=== PATIENT | female | born 1950 | race African-American/Black ===

== ENCOUNTER 2017-03-03 16:26 | Emergency (ER) | payer SELFPAY ==
--- NOTE | 2017-03-03 17:37 | ER Document Report ---
ED Medical Screen (RME) - General Chief Complaint: Abdominal Pain Stated Complaint: ABDOMINAL PAIN Time Seen by Provider: 03/03/17 17:29 Notes: Patient is a 66 year old female who was referred from [facility] with abdominal pain, bloating and constipation. she was seen on 02/16/2017 for diarrhea and abdominal pain for 3-4 days, she was cipro for concerns for diverticulitis. Negative stool culture. c/ diff not run due to insufficient sample. last po 720am Tolerating PO, denies N/v. denies flatus but admits to burping more then her normal denies fevers, chills PMH: diverticulitis, DM, HTN PSH: appy, tubal ligation, paulino SH: smoker, denies etoh IVDU TRAVEL OUTSIDE OF THE [place] IN LAST 30 DAYS: No - Related Data Allergies/Adverse Reactions: No Known Allergies Allergy (Unverified 03/03/17 16:32) Past Medical History - Social History Chew tobacco use (# tins/day): No Frequency of alcohol use: None Drug Abuse: None - Past Medical History Cardiac Medical History: Reports: Hx Hypertension Endocrine Medical History: Reports: Hx Diabetes Mellitus Type 2 Renal/ Medical History: Denies: Hx Peritoneal Dialysis Past Surgical History: Reports: Hx Appendectomy, Hx Tubal Ligation - Immunizations Hx Diphtheria, Pertussis, Tetanus Vaccination: Yes - 2013 Physical Exam - Vital signs Vitals: Temp Pulse Resp BP Pulse Ox 98.9 F 87 18 114/48 L 94 03/03/17 16:30 03/03/17 16:30 03/03/17 16:30 03/03/17 16:30 03/03/17 16:30 - General General appearance: Appears well, Alert In distress: None - Respiratory Respiratory status: No respiratory distress Chest status: Nontender Breath sounds: Normal Chest palpation: Normal - Cardiovascular Rhythm: Regular Heart sounds: Normal auscultation, S1 appreciated, S2 appreciated Murmur: No Pulses: Normal: Radial - Abdominal Inspection: Obese Distension: Distended Bowel sounds: Hypoactive Tenderness: Tender - diffuse Course - Vital Signs Vital signs: Temp Pulse Resp BP Pulse Ox 98.9 F 87 18 114/48 L 94 03/03/17 16:30 03/03/17 16:30 03/03/17 16:30 03/03/17 16:30 03/03/17 16:30
[2017-03-03 18:34] LABS: ABSOLUTE BASOPHILS # (AUTO) 0.1 10^3/uL (0.0-0.2); ABSOLUTE EOSINOPHILS # (AUTO) 0.1 10^3/uL (0.0-0.6); ABSOLUTE MONOCYTES (AUTO) 0.9 10^3/uL (0.1-1.4); ABSOLUTE NEUT (AUTO) 8.9 10^3/uL (1.7-8.2); BASOPHILS % (AUTO) 0.6 % (0-2); EOSINOPHILS % (AUTO) 0.7 % (0-6); HEMATOCRIT 37.6 % (36.0-47.0); HEMOGLOBIN 12.6 g/dL (12.0-15.5); HGB HCT DIFFERENCE 0.2; MEAN CORPUSCULAR HEMOGLOBIN 31.1 pg (27.0-33.4); MEAN CORPUSCULAR HGB CONC 33.6 g/dL (32.0-36.0); MEAN CORPUSCULAR VOLUME 93 fl (80-97); MONOCYTES % (AUTO) 7.3 % (3-13); RED BLOOD COUNT 4.07 10^6/uL (3.72-5.28); RED CELL DISTRIBUTION WIDTH 13.3 % (11.5-14.0); SEGMENTED NEUTROPHILS % (AUTO) 68.4 % (42-78)
[2017-03-03 18:55] LABS: ALANINE AMINOTRANSFERASE 23 U/L (9-52); ALBUMIN 3.8 g/dL (3.5-5.0); ALKALINE PHOSPHATASE 112 U/L (38-126); ANION GAP 11 (5-19); ASPARTATE AMINO TRANSFERASE 25 U/L (14-36); BILIRUBIN,DIRECT 0.7 mg/dL (0.0-0.4); BILIRUBIN,TOTAL 1.4 mg/dL (0.2-1.3); BLOOD UREA NITROGEN 27 mg/dL (7-20); CALCIUM 9.6 mg/dL (8.4-10.2); CARBON DIOXIDE 26 mmol/L (22-30); CHLORIDE 106 mmol/L (98-107); CREATININE RESULT 1.03 mg/dL (0.52-1.25); GLUCOSE 148 mg/dL (75-110); LIPASE 11.4 U/L (23-300); POTASSIUM 5.1 mmol/L (3.6-5.0); SODIUM 142.9 mmol/L (137-145); TOTAL PROTEIN 7.6 g/dL (6.3-8.2)
--- NOTE | 2017-03-03 20:50 | RADIOLOGY REPORT (SQ) ---
EXAM DESCRIPTION: CT ABD/PELVIS WITH IV ONLY COMPLETED DATE/TIME: 03/03/2017 8:16 pm REASON FOR STUDY: abdominal pain, constipation h/o diverticulitis COMPARISON: None. TECHNIQUE: CT scan of the abdomen and pelvis performed using helical scanning technique with dynamic intravenous contrast injection. No oral contrast. Images reviewed with lung, soft tissue, and bone windows. Reconstructed coronal and sagittal MPR images reviewed. Delayed images for evaluation of the urinary system also acquired. All images stored on PACS. All CT scanners at this facility use dose modulation, iterative reconstruction, and/or weight based d osing when appropriate to reduce radiation dose to as low as reasonably achievable (ALARA). [facility]: Dose Right [facility]: CareDose [facility]: Dose Right [facility]: Teradose 4D [facility]: Unda CONTRAST TYPE AND DOSE: contrast/concentration: Isovue 370.00 mg/ml; Total Contrast Delivered: 100.0 ml; Total Saline Delivered: 45.0 ml RENAL FUNCTION: Creatinine 1.03 RADIATION DOSE: Up-to-date CT equipment and radiation dose reduction techniques were employed. CTDIv ol: 28.0 - 29.5 mGy. DLP: 3513 mGy-cm.. LIMITATIONS: None. FINDINGS: LOWER CHEST: No significant findings. No nodules or infiltrates. LIVER: Normal size. No masses. No dilated ducts. SPLEEN: Normal size. No focal lesions. PANCREAS: No masses. No significant calcifications. No adjacent inflammation or peripancreatic fluid collections. Pancreatic duct not dilated. GALLBLADDER: Status post cholecystectomy ADRENAL GLANDS: No significant masses or asymmetry. RIGHT KIDNEY AND URETER: No solid masses. No significant calcifications. No hydronephrosis or hyd roureter. LEFT KIDNEY AND URETER: No solid masses. No significant calcifications. No hydronephrosis or hydr oureter. AORTA AND VESSELS: No aneurysm. No dissection. There is ectasia of the abdominal aorta and iliac ves sels with vascular calcifications and a component of intraluminal clot. Renal arteries, SMA, celiac without stenosis. RETROPERITONEUM: No retroperitoneal adenopathy, hemorrhage or masses. BOWEL AND PERITONEAL CAVITY: No masses or inflammatory changes. A moderate amount of intra-abdominal and pelvic ascitic fluid is identified with perihepatic and perisplenic components. APPENDIX: Status post appendectomy PELVIS: No mass. Pelvic ascitic fluid is identified. Normal bladder. ABDOMINAL WALL: No masses. No hernias. BONES: No significant or acute findings. OTHER: No other significant finding. IMPRESSION: Intra-abdominal and pelvic ascitic fluid as noted above. Other findings as noted above TECHNICAL DOCUMENTATION: JOB ID: [id number] Quality ID # [id number]: Final reports with documentation of one or more dose reduction techniques (e.g., Au tomated exposure control, adjustment of the mA and/or kV according to patient size, use of iterative reconstruction technique) 2010 [employer]- All Rights Reserved
[2017-03-03] MEDS ORDERED: LACTULOSE SYRUP 20 GM/30 ML UDCUP PO ONE (21:26)
--- NOTE | 2017-03-03 21:30 | ER Document Report ---
ED General - General Chief Complaint: Abdominal Pain Stated Complaint: ABDOMINAL PAIN Time Seen by Provider: 03/03/17 17:29 Notes: Patient is a 69-year-old female with past medical history of hypertension, hyperlipidemia, morbid obesity, prior appendectomy, cholecystectomy, who presents with 1 week of abdominal distention, generalized abdominal cramping and inability to have a bowel movement. Patient states she was having persistent diarrhea last week so she began taking loperamide. She states that since that time she has been unable to have a bowel movement and has since discontinued that medication. She has begun try MiraLAX at home without any success and having a bowel movement or having resolution of her abdominal pain. She was seen by her primary care doctor due to her ongoing abdominal pain was referred to the emergency department for CT scan of her abdomen and pelvis to evaluate for alternative pathologies. She does describe her abdominal pain as being a generalized abdominal bloating and cramping, feeling like she needs to have a bowel movement or pass gas. Does note that she is continued to pass small amounts of flatus at home but "not enough to actually get relief". She denies any history of similar symptoms in the past. She has no prior history of an ileus or a bowel obstruction. She has not had any melena or hematochezia. She has not had any vomiting. No chest pain or shortness of breath. TRAVEL OUTSIDE OF THE [place] IN LAST 30 DAYS: No - Related Data Allergies/Adverse Reactions: No Known Allergies Allergy (Unverified 03/03/17 16:32) Past Medical History - General Information source: Patient - Social History Smoking Status: Current Every Day Smoker Chew tobacco use (# tins/day): No Frequency of alcohol use: None Drug Abuse: None Lives with: Spouse/Significant other Family History: Reviewed & Not Pertinent - Past Medical History Cardiac Medical History: Reports: Hx Hypertension Endocrine Medical History: Reports: Hx Diabetes Mellitus Type 2 Renal/ Medical History: Denies: Hx Peritoneal Dialysis Past Surgical History: Reports: Hx Appendectomy, Hx Cholecystectomy, Hx Tubal Ligation - Immunizations Hx Diphtheria, Pertussis, Tetanus Vaccination: Yes - 2013 Review of Systems - Review of Systems Notes: Constitutional: Negative for fever. HENT: Negative for sore throat. Eyes: Negative for visual changes. Cardiovascular: Negative for chest pain. Respiratory: Negative for shortness of breath. Gastrointestinal: Positive for abdominal pain Genitourinary: Negative for dysuria. Musculoskeletal: Negative for back pain. Skin: Negative for rash. Neurological: Negative for headaches, weakness or numbness. 10 point ROS negative except as marked above and in HPI. Physical Exam - Vital signs Vitals: Temp Pulse Resp BP Pulse Ox 98.9 F 87 18 114/48 L 94 03/03/17 16:30 03/03/17 16:30 03/03/17 16:30 03/03/17 16:30 03/03/17 16:30 Interpretation: Normal Notes: PHYSICAL EXAMINATION: GENERAL: Well-appearing, well-nourished and in no acute distress. HEAD: Atraumatic, normocephalic. EYES: Pupils equal round and reactive to light, extraocular movements intact, sclera anicteric, conjunctiva are normal. ENT: nares patent, oropharynx clear without exudates. Moderately dry mucous membranes. NECK: Normal range of motion, supple without lymphadenopathy LUNGS: Breath sounds clear to auscultation bilaterally and equal. No wheezes rales or rhonchi. HEART: Regular rate and rhythm without murmurs ABDOMEN: Soft, mildly distended. No focal areas of tenderness, rebound or guarding. Bowel sounds are present. EXTREMITIES: Normal range of motion, no pitting or edema. No cyanosis. NEUROLOGICAL: No focal neurological deficits. Moves all extremities spontaneously and on command. PSYCH: Normal mood, normal affect. SKIN: Warm, Dry, normal turgor, no rashes or lesions noted. Course - Re-evaluation Re-evalutation: 03/03/17 21:24 Patient presents with generalized abdominal pain and inability to have a bowel movement for the past 1 week. This started after she took loperamide repeatedly for a diarrheal episode last week which is now resolved. Patient was referred from her primary care doctor. On examination patient has mild distention of the abdomen but no focal areas of tenderness. Laboratories are unremarkable. CT abdomen and pelvis does not demonstrate any acute findings other than trace ascites, not a volume with which I could obtain a sample to evaluate for peritonitis and I do not suspect that is the etiology of patient's presentation. I much more suspect the patient, having been unable to successfully have a bowel movement and have minimal flatus for the past 1 week is having significant abdominal distention and discomfort secondary to that etiology. She herself agrees with this stating that it feels that she just needs to have a good bowel movement and her pain would go away. I have instructed her to discontinue loperamide, begin MiraLAX, and follow-up with her primary care doctor. At this time I do not suspect an acute aortic dissection, mesenteric ischemia, small bowel obstruction or ileus. At this time will discharge with return precautions and follow-up recommendations. Verbal discharge instructions given a the bedside and opportunity for questions given. Medication warnings reviewed. Patient is in agreement with this plan and has verbalized understanding of return precautions and the need for primary care follow-up in the next 24-72 hours. - Vital Signs Vital signs: Temp Pulse Resp BP Pulse Ox 97.9 F 84 17 121/59 L 95 03/03/17 22:09 03/03/17 22:09 03/03/17 22:09 03/03/17 22:09 03/03/17 22:09 - Laboratory Result Diagrams: 03/03/17 18:12 03/03/17 18:12 Laboratory results interpreted by me: 03/03/17 03/03/17 18:12 18:12 WBC 13.0 H Absolute Neutrophils 8.9 H Potassium 5.1 H BUN 27 H Est GFR (Non-Af Amer) 54 L Glucose 148 H Total Bilirubin 1.4 H Direct Bilirubin 0.7 H Lipase 11.4 L - Diagnostic Test Radiology reviewed: Reports reviewed Discharge - Discharge Clinical Impression: Generalized abdominal pain Condition: Good Disposition: HOME, SELF-CARE Additional Instructions: You have been seen in the Emergency Department (ED) for abdominal pain. Your evaluation did not identify a clear cause of your symptoms but was generally reassuring. Begin taking MiraLAX 2 capfuls daily and increase if you continue to have symptoms. Please follow up with your doctor as soon as possible regarding today's emergent visit and the symptoms that are bothering you. Return to the ED if your abdominal pain worsens or fails to improve, you develop bloody vomiting, bloody diarrhea, you are unable to tolerate fluids due to vomiting, fever greater than 101, or other symptoms that concern you. Referrals: BETHANY MCCULLOUGH MD [Primary Care Provider] - Follow up as needed
[2017-03-03 22:11] VITALS: BP 121/59
== END 2017-03-03 22:09 | disposition home or self-care (01) ==
LOC: ER 16:26
DX: R10.84 Generalized abdominal pain (principal); I10 Essential (primary) hypertension; E78.5 Hyperlipidemia, unspecified; E66.01 Morbid (severe) obesity due to excess calories; Z98.890 Other specified postprocedural states; R19.7 Diarrhea, unspecified; F17.200 Nicotine dependence, unspecified, uncomplicated
CPT/HCPCS: 36415; 74177; 80053; 83690; 85025; 99284

== ENCOUNTER 2017-03-09 11:31 | Emergency (ER) | payer SELFPAY ==
[2017-03-09] MEDS ORDERED: NORMAL SALINE 1000 ML 500 ML IV PRN (12:11)
--- NOTE | 2017-03-09 12:12 | ER Document Report ---
ED Medical Screen (RME) - General Chief Complaint: Abdominal Pain Stated Complaint: ABDOMINAL PAIN Time Seen by Provider: 03/09/17 11:45 Mode of Arrival: Ambulatory Information source: Patient TRAVEL OUTSIDE OF THE [place] IN LAST 30 DAYS: No - HPI Patient complains to provider of: Abdominal pain, bloating, no bowel movement 2 weeks Notes: 03/09/17 12:11 Patient is a 66-year-old female presenting to the emergency room today complaining of abdominal pain with bloating, she initially had some diarrhea, took loperamide for this, then developed constipation, she has not had a bowel movement for 2 weeks, she was seen in this emergency department on 03/03/2017, had a full evaluation at that point in time, and was advised to take MiraLAX twice a day, she has been doing this but still has not had a sizable bowel movement, continues to have increased bloating and now has discomfort when eating - Related Data Allergies/Adverse Reactions: No Known Allergies Allergy (Verified 03/09/17 11:37) Past Medical History - Past Medical History Cardiac Medical History: Reports: Hx Hypertension Endocrine Medical History: Reports: Hx Diabetes Mellitus Type 2 Renal/ Medical History: Denies: Hx Peritoneal Dialysis Past Surgical History: Reports: Hx Appendectomy, Hx Cholecystectomy, Hx Tubal Ligation - Immunizations Hx Diphtheria, Pertussis, Tetanus Vaccination: Yes - 2013 Physical Exam - Vital signs Vitals: Temp Pulse Resp BP Pulse Ox 98.1 F 105 H 18 125/61 96 03/09/17 11:37 03/09/17 11:37 03/09/17 11:37 03/09/17 11:37 03/09/17 11:37 Course - Vital Signs Vital signs: Temp Pulse Resp BP Pulse Ox 98.1 F 105 H 18 125/61 96 03/09/17 11:37 03/09/17 11:37 03/09/17 11:37 03/09/17 11:37 03/09/17 11:37
[2017-03-09 12:34] LABS: ABSOLUTE BASOPHILS # (AUTO) 0.1 10^3/uL (0.0-0.2); ABSOLUTE EOSINOPHILS # (AUTO) 0.1 10^3/uL (0.0-0.6); ABSOLUTE LYMPHOCYTES (AUTO) 2.6 10^3/uL (0.5-4.7); ABSOLUTE MONOCYTES (AUTO) 0.8 10^3/uL (0.1-1.4); BASOPHILS % (AUTO) 0.8 % (0-2); EOSINOPHILS % (AUTO) 0.9 % (0-6); HEMATOCRIT 34.3 % (36.0-47.0); HEMOGLOBIN 11.7 g/dL (12.0-15.5); HGB HCT DIFFERENCE 0.8; LYMPHOCYTES % (AUTO) 19.4 % (13-45); MEAN CORPUSCULAR HEMOGLOBIN 31.5 pg (27.0-33.4); MEAN CORPUSCULAR VOLUME 93 fl (80-97); MONOCYTES % (AUTO) 5.7 % (3-13); RED CELL DISTRIBUTION WIDTH 13.6 % (11.5-14.0); SEGMENTED NEUTROPHILS % (AUTO) 73.2 % (42-78); WHITE BLOOD COUNT 13.6 10^3/uL (4.0-10.5)
[2017-03-09 13:02] LABS: ALANINE AMINOTRANSFERASE 14 U/L (9-52); ALBUMIN 3.9 g/dL (3.5-5.0); ALKALINE PHOSPHATASE 120 U/L (38-126); ANION GAP 9 (5-19); ASPARTATE AMINO TRANSFERASE 23 U/L (14-36); BILIRUBIN,DIRECT 0.6 mg/dL (0.0-0.4); BILIRUBIN,TOTAL 1.5 mg/dL (0.2-1.3); BLOOD UREA NITROGEN 20 mg/dL (7-20); CALCIUM 9.4 mg/dL (8.4-10.2); CARBON DIOXIDE 26 mmol/L (22-30); CHLORIDE 107 mmol/L (98-107); CREATININE RESULT 0.89 mg/dL (0.52-1.25); GLUCOSE 146 mg/dL (75-110); POTASSIUM 4.1 mmol/L (3.6-5.0); SODIUM 142.1 mmol/L (137-145); TOTAL PROTEIN 8.2 g/dL (6.3-8.2)
[2017-03-09 13:07] LABS: LIPASE < 10.0 U/L (23-300)
--- NOTE | 2017-03-09 14:45 | ER Document Report ---
ED General - General Chief Complaint: Abdominal Pain Stated Complaint: ABDOMINAL PAIN Time Seen by Provider: 03/09/17 11:45 Mode of Arrival: Ambulatory Notes: 66-year-old female with a history of cholecystectomy presents with about a week of abdominal pain and bloating associated with daily watery bowel movements, constant, worsening today. Pain is located mostly in the left lower quadrant is "warm to the touch." She states "I have had a decent bowel movement in over a week. She has not had a hard bowel movements or bright red blood per rectum. No nausea vomiting but decreased oral intake both liquids and solids. Denies vaginal bleeding or gynecologic issues. Does states she has had decreased urine output. Has not been able to give a urine sample. TRAVEL OUTSIDE OF THE [place] IN LAST 30 DAYS: No - Related Data Allergies/Adverse Reactions: No Known Allergies Allergy (Verified 03/09/17 11:37) Past Medical History - General Information source: Patient - Social History Smoking Status: Current Every Day Smoker Chew tobacco use (# tins/day): No Frequency of alcohol use: None Drug Abuse: None Family History: Reviewed & Not Pertinent - Past Medical History Cardiac Medical History: Reports: Hx Hypertension Other: Fibroids gallstones Endocrine Medical History: Reports: Hx Diabetes Mellitus Type 2 Renal/ Medical History: Denies: Hx Peritoneal Dialysis Past Surgical History: Reports: Hx Appendectomy, Hx Cholecystectomy, Hx Tubal Ligation - Immunizations Hx Diphtheria, Pertussis, Tetanus Vaccination: Yes - 2013 Review of Systems - Review of Systems Notes: REVIEW OF SYSTEMS GEN: Denies fever, chills, weight loss ENT: Denies sore throat, nasal discharge, ear pain EYES: Denies blurry vision, eye pain, discharge CV: Denies chest pain, palpitations, edema RESP: Denies cough, shortness of breath, wheezing GI: Femoral pain distention diarrhea MSK: Denies joint pain/swelling, edema, SKIN: Denies rash, skin lesions LYMPH: Denies swollen glands/lymph nodes NEURO: Denies headache, focal weakness or numbness, dizziness PSYCH: Denies depression, suicidal or homicidal ideation PHYSICAL EXAMINATION General: No acute distress, well-nourished Head: Atraumatic, normocephalic ENT: Mouth normal, oropharynx moist, no exudates or tonsillar enlargement Eyes: Conjunctiva normal, pupils equal, lids normal Neck: No JVD, supple, no guarding CVS: Normal rate, regular rhythm, no murmurs Resp: No resp distress, equal and normal breath sounds bilaterally GI: Mild distention versus obesity, left lower quadrant tenderness without rebound or guarding. No masses or hernias felt. Suprapubic fullness. Ext: No deformities, no edema, normal range of motion in upper and lower ext Back: No CVA or midline TTP Skin: No rash, warm Lymphatic: No lymphadeopathy noted Neuro: Awake, alert. Face symmetric. GCS 15. Physical Exam - Vital signs Vitals: Temp Pulse Resp BP Pulse Ox 98.1 F 105 H 18 125/61 96 03/09/17 11:37 03/09/17 11:37 03/09/17 11:37 03/09/17 11:37 03/09/17 11:37 Course - Re-evaluation Re-evalutation: 03/09/17 14:44 Subacute abdominal pain with watery stool and distention with left lower quadrant tenderness concerning for diverticulitis partial bowel obstruction and ovarian malignancy or other abdominal mass, versus urinary retention. Evaluated in triage ordered labs and CT which I agree with. 03/09/17 15:37 CT shows ascites slightly worse than prior but no mass. LFTs are normal so it is not likely hepatic. She has no stigmata of heart failure on her exam so do not think this is related to heart failure. She may have a malignancy and I discussed this with her. I also discussed with Dr. Akbar from hospitalist service who does not think she needs to be admitted. I agree with this given her appearance and the fact that she is passing stool. I will refer her back to her primary care for possible outpatient image guided ascites sampling and further workup of this ascites. Insert discharge - Vital Signs Vital signs: Temp Pulse Resp BP Pulse Ox 98.1 F 105 H 18 125/61 96 03/09/17 11:37 03/09/17 11:37 03/09/17 11:37 03/09/17 11:37 03/09/17 11:37 - Laboratory Result Diagrams: 03/09/17 12:26 03/09/17 12:26 Laboratory results interpreted by me: 03/09/17 03/09/17 12:26 12:26 WBC 13.6 H RBC 3.70 L Hgb 11.7 L Hct 34.3 L Absolute Neutrophils 10.0 H Glucose 146 H Total Bilirubin 1.5 H Direct Bilirubin 0.6 H Lipase < 10.0 L Discharge - Discharge Clinical Impression: Ascites Qualifiers: Ascites type: other type Qualified Code(s): R18.8 - Other ascites Condition: Good Disposition: HOME, SELF-CARE Instructions: Abdominal Pain ([facility]) Additional Instructions: Your CAT scan showed some fluid in your abdominal cavity. This can be caused by multiple things but the most worrisome would be liver disease or cancer. This fluid will need to be sampled as an outpatient and he may require specialty referral. Please keep well hydrated, he may take [id number] antidiarrheal medicine such as Imodium, and follow-up with your regular doctor in 5 days. Referrals: PILAR GUTIERREZ MD [Primary Care Provider] - Follow up in 3-5 days
--- NOTE | 2017-03-09 15:23 | RADIOLOGY REPORT (SQ) ---
EXAM DESCRIPTION: CT ABD/PELVIS WITH IV ORAL COMPLETED DATE/TIME: 03/09/2017 3:05 pm REASON FOR STUDY: abdominal pain COMPARISON: 03/03/2017. TECHNIQUE: CT scan of the abdomen and pelvis performed using helical scanning technique with dynamic intravenous contrast injection. No oral contrast. Images reviewed with lung, soft tissue, and bone windows. Reconstructed coronal and sagittal MPR images reviewed. Delayed images for evaluation of the urinary system also acquired. All images stored on PACS. All CT scanners at this facility use dose modulation, iterative reconstruction, and/or weight based d osing when appropriate to reduce radiation dose to as low as reasonably achievable (ALARA). [facility]: Dose Right [facility]: CareDose [facility]: Dose Right [facility]: Teradose 4D [facility]: Member Desk CONTRAST TYPE AND DOSE: contrast/concentration: Isovue 370.00 mg/ml; Total Contrast Delivered: 100.0 ml; Total Saline Delivered: 68.0 ml RENAL FUNCTION: Creatinine 0.89. RADIATION DOSE: Up-to-date CT equipment and radiation dose reduction techniques were employed. CTDIv ol: 20.7 - 21.1 mGy. DLP: 2469 mGy-cm.. LIMITATIONS: None. FINDINGS: LOWER CHEST: No significant findings. No nodules or infiltrates. LIVER: Normal size. No masses. No dilated ducts. SPLEEN: Normal size. No focal lesions. PANCREAS: No masses. No significant calcifications. No adjacent inflammation or peripancreatic fluid collections. Pancreatic duct not dilated. GALLBLADDER: Surgically absent. ADRENAL GLANDS: No significant masses or asymmetry. RIGHT KIDNEY AND URETER: No solid masses. No significant calcification. No hydronephrosis or hydroure ter. LEFT KIDNEY AND URETER: No solid masses. No significant calcification. No hydronephrosis or hydrouret er. AORTA AND VESSELS: Atherosclerotic without aneurysm or dissection. Patent major arterial branches. No venous clot evident. RETROPERITONEUM: No retroperitoneal adenopathy, hemorrhage or masses. BOWEL AND PERITONEAL CAVITY: No evidence of mechanical bowel obstruction. Moderate ascites, slightly progressive compared to prior. Edema and fluid infiltrating the lower mesenteric a. no focal or enh ancing fluid collections identified. No free air. APPENDIX: Surgically absent. PELVIS: Free fluid, as before. This looks relatively simple. No bladder pathology. ABDOMINAL WALL: No masses. No hernias. BONES: No significant or acute findings. OTHER: No other significant finding. IMPRESSION: 1. Moderate abdominopelvic ascites, slightly progressive. 2. No developing bowel obstru ction. No worrisome solid organ lesions. No free intraperitoneal air or focally loculated collectio ns detected otherwise. TECHNICAL DOCUMENTATION: JOB ID: [id number] Quality ID # [id number]: Final reports with documentation of one or more dose reduction techniques (e.g., Au tomated exposure control, adjustment of the mA and/or kV according to patient size, use of iterative reconstruction technique) 2010 [employer]- All Rights Reserved
[2017-03-09 16:21] VITALS: BP 122/64
[2017-03-09 23:25] LABS: ALANINE AMINOTRANSFERASE 25 U/L (9-52); ALBUMIN 3.5 g/dL (3.5-5.0); ALKALINE PHOSPHATASE 115 U/L (38-126); ASPARTATE AMINO TRANSFERASE 20 U/L (14-36); BILIRUBIN,DIRECT 0.8 mg/dL (0.0-0.4); BILIRUBIN,TOTAL 1.6 mg/dL (0.2-1.3); TOTAL PROTEIN 7.5 g/dL (6.3-8.2)
== END 2017-03-09 16:00 | disposition home or self-care (01) ==
LOC: ER 11:31
DX: R18.8 Other ascites (principal); R10.32 Left lower quadrant pain; I10 Essential (primary) hypertension; R19.4 Change in bowel habit; F17.200 Nicotine dependence, unspecified, uncomplicated; Z90.49 Acquired absence of other specified parts of digestive tract
CPT/HCPCS: 99284; 96360; 36415; 83690; 85025; 80076; 80053; 74177; J7030

== ENCOUNTER 2017-03-18 21:24 | Emergency (ER) | payer SELFPAY ==
[2017-03-18 21:47] VITALS: BP 108/37
[2017-03-19 02:58] LABS: ABSOLUTE BASOPHILS # (AUTO) 0.1 10^3/uL (0.0-0.2); ABSOLUTE EOSINOPHILS # (AUTO) 0.1 10^3/uL (0.0-0.6); ABSOLUTE LYMPHOCYTES (AUTO) 1.8 10^3/uL (0.5-4.7); ABSOLUTE MONOCYTES (AUTO) 0.6 10^3/uL (0.1-1.4); ABSOLUTE NEUT (AUTO) 8.8 10^3/uL (1.7-8.2); BASOPHILS % (AUTO) 0.7 % (0-2); EOSINOPHILS % (AUTO) 0.7 % (0-6); HEMATOCRIT 27.9 % (36.0-47.0); HEMOGLOBIN 9.3 g/dL (12.0-15.5); LYMPHOCYTES % (AUTO) 16.2 % (13-45); MEAN CORPUSCULAR HEMOGLOBIN 31.3 pg (27.0-33.4); MEAN CORPUSCULAR HGB CONC 33.2 g/dL (32.0-36.0); MEAN CORPUSCULAR VOLUME 94 fl (80-97); RED BLOOD COUNT 2.96 10^6/uL (3.72-5.28); RED CELL DISTRIBUTION WIDTH 15.3 % (11.5-14.0); SEGMENTED NEUTROPHILS % (AUTO) 77.4 % (42-78); WHITE BLOOD COUNT 11.4 10^3/uL (4.0-10.5)
--- NOTE | 2017-03-19 03:02 | RADIOLOGY REPORT (SQ) ---
EXAM DESCRIPTION: ACUTE ABDOMEN SERIES COMPLETED DATE/TIME: 03/19/2017 2:36 am REASON FOR STUDY: abdominal pain COMPARISON: None. NUMBER OF VIEWS: Three views. 5 images. TECHNIQUE: Frontal chest, supine abdomen and upright/decubitus abdomen radiographic images acquired. LIMITATIONS: None. FINDINGS: CHEST: Lungs clear of infiltrates. FREE AIR: None. No abnormal gas collections. BOWEL GAS PATTERN: Nonobstructive pattern. No dilated loops or air fluid levels. Mild gas dilation o f 3 adjacent loops of ileal bowel measuring up to 2.8 cm in diameter, nonspecific. CALCIFICATIONS: No suspicious calcifications. HARDWARE: Right upper abdominal clips. SOFT TISSUES: No gross mass or suggestion of organomegaly. BONES: No acute fracture. No worrisome bone lesions. Mild lumbar dextro convexity. OTHER: No other significant finding. IMPRESSION: NO RADIOGRAPHIC EVIDENCE FOR ACUTE ABDOMINAL DISEASE. TECHNICAL DOCUMENTATION: JOB ID: [id number] [employer]- All Rights Reserved
[2017-03-19 03:12] LABS: ALANINE AMINOTRANSFERASE 24 U/L (9-52); ALBUMIN 3.1 g/dL (3.5-5.0); ALKALINE PHOSPHATASE 91 U/L (38-126); ANION GAP 11 (5-19); ASPARTATE AMINO TRANSFERASE 13 U/L (14-36); BILIRUBIN,DIRECT 0.3 mg/dL (0.0-0.4); BILIRUBIN,TOTAL 0.3 mg/dL (0.2-1.3); BLOOD UREA NITROGEN 33 mg/dL (7-20); CARBON DIOXIDE 23 mmol/L (22-30); CHLORIDE 110 mmol/L (98-107); CREATININE RESULT 1.06 mg/dL (0.52-1.25); GLUCOSE 170 mg/dL (75-110); POTASSIUM 4.9 mmol/L (3.6-5.0); SODIUM 143.5 mmol/L (137-145); TOTAL PROTEIN 6.5 g/dL (6.3-8.2)
[2017-03-19] MEDS ORDERED: OXYCODONE-ACETAMINOPHEN 5-325 MG TABLET PO ONE (03:16)
--- NOTE | 2017-03-19 03:19 | ER Document Report ---
ED General - General Chief Complaint: Diarrhea Stated Complaint: LEG NUMBNESS Time Seen by Provider: 03/19/17 01:14 Notes: Patient is a 66-year-old female with a recent diagnosis of ascites. She was sent at the [facility] and had a paracentesis performed. Since then she has had pain at the site where they performed paracentesis in the right lower quadrant. No fevers. No vomiting. No diarrhea. No bloody stools. Patient's only other complaint is that she has some intermittent numbness into her left leg. She denies any back pain or back injury. She denies any weakness associated with it. Patient says she was prescribed oxycodone for pain after the paracentesis however when to take the prescription to the pharmacist the pharmacist said that the dose did not seem correct and therefore they would not fill it until they can get touch with the prescribing physician. Pharmacy was unable to get in touch with the prescribing physician and therefore should not have any pain medication. She has no other complaints at this time. She is supposed to follow-up on for her results and for reevaluation. TRAVEL OUTSIDE OF THE [place] IN LAST 30 DAYS: No - Related Data Allergies/Adverse Reactions: No Known Allergies Allergy (Verified 03/18/17 21:44) Past Medical History - Social History Smoking Status: Unknown if Ever Smoked Frequency of alcohol use: None Drug Abuse: None Family History: Reviewed & Not Pertinent Patient has suicidal ideation: No Patient has homicidal ideation: No - Past Medical History Cardiac Medical History: Reports: Hx Hypertension Endocrine Medical History: Reports: Hx Diabetes Mellitus Type 2 Renal/ Medical History: Denies: Hx Peritoneal Dialysis Past Surgical History: Reports: Hx Appendectomy, Hx Cholecystectomy, Hx Tubal Ligation - Immunizations Hx Diphtheria, Pertussis, Tetanus Vaccination: Yes - 2013 Review of Systems - Review of Systems Notes: My Normal Review Basic REVIEW OF SYSTEMS: CONSTITUTIONAL : Denies fever, chills, or sweats. Denies recent illness. EENT: Denies eye, ear, throat, or mouth pain or symptoms. Denies nasal or sinus congestion. CARDIOVASCULAR: Denies chest pain. RESPIRATORY: Denies cough, cold, or chest congestion. Denies shortness of breath, difficulty breathing, or wheezing. GASTROINTESTINAL: Right-sided abdominal pain. MUSCULOSKELETAL: Denies neck or back pain or joint pain or swelling. SKIN: Denies rash or skin lesions. NEUROLOGICAL: Denies altered mental status or loss of consciousness. Denies headache. Denies weakness or paralysis or loss of use of either side. Denies problems with gait or speech. Denies sensory or motor loss. ALL OTHER SYSTEMS REVIEWED AND NEGATIVE. Physical Exam - Vital signs Vitals: Temp Pulse Resp BP Pulse Ox 97.8 F 73 18 108/37 L 98 03/18/17 21:45 03/18/17 21:45 03/18/17 21:45 03/18/17 21:45 03/18/17 21:45 - Notes Notes: General Appearance: Well nourished, alert, cooperative, no acute distress, no obvious discomfort. Patient is sleeping comfortably in the room. She is arousable to talk to. Vitals: reviewed, See vital signs table. Head: no swelling or tenderness to the head Eyes: PERRL, EOMI, Conjuctiva clear Mouth: No decreasd moisture Neck: Supple, no neck tenderness, No thyromegaly Lungs: No wheezing, No rales, No rhonci, No accessory muscle use, good air exchange bilaterally. Heart: Normal rate, Regular rythm, No murmur, no rub Abdomen: Normal BS, soft, No rigidity, mild right-sided abdominal pain to palpation., No rigidity or guarding to the abdomen. Extremities: strength 5/5 in all extremities, good pulses in all extremities, no swelling or tenderness in the extremities, no edema. Skin: warm, dry, appropriate color, no rash Neuro: speech clear, oriented x 3, normal affect, responds appropriately to questions. Patient has normal distal sensation to palpation of her left leg and foot. She is good strength with plantar dorsiflexion of her left leg and foot. She has no focal neurologic deficit on exam. Course - Re-evaluation Re-evalutation: 03/19/17 06:26 The patient safe to be discharged home. I will write her a short prescription for can touch with her doctor Tuesday. Encouraged her return to ER if she has worsening pain, fevers, vomiting, or feels unwell. Patient agrees with plan will be discharged home. Dictation of this chart was performed using voice recognition software; therefore, there may be some unintended grammatical errors. - Vital Signs Vital signs: Temp Pulse Resp BP Pulse Ox 97.8 F 73 18 108/37 L 98 03/18/17 21:45 03/18/17 21:45 03/18/17 21:45 03/18/17 21:45 03/18/17 21:45 - Laboratory Result Diagrams: 03/19/17 02:45 03/19/17 02:45 Laboratory results interpreted by me: 03/19/17 03/19/17 03/19/17 02:45 02:45 02:45 WBC 11.4 H RBC 2.96 L Hgb 9.3 L Hct 27.9 L RDW 15.3 H Plt Count 482 H Absolute Neutrophils 8.8 H Chloride 110 H BUN 33 H Est GFR (Non-Af Amer) 52 L Glucose 170 H AST 13 L Ammonia < 8.7 L Albumin 3.1 L Discharge - Discharge Clinical Impression: Abdominal pain Qualifiers: Abdominal location: right lower quadrant Qualified Code(s): R10.31 - Right lower quadrant pain Condition: Good Disposition: HOME, SELF-CARE Instructions: Oral Narcotic Medication ([facility]) Additional Instructions: Please follow up with your doctor at [facility] this coming week as scheduled. Please return to the ER immediately if you have worsening pain, leg weakness, worsening numbness, fevers, vomiting, or feel unwell. I will write you for a short prescription of pain medicine to take until the pharmacy can get in touch with your doctor to get your other prescription straightened out. Prescriptions: Oxycodone HCl/Acetaminophen [Percocet 5-325 mg Tablet] 1 tab PO Q6 PRN #15 tab PRN Reason:
== END 2017-03-19 03:33 | disposition home or self-care (01) ==
LOC: ER 21:24
DX: R10.31 Right lower quadrant pain (principal); R19.7 Diarrhea, unspecified; R20.0 Anesthesia of skin; I10 Essential (primary) hypertension; E11.9 Type 2 diabetes mellitus without complications; Z90.49 Acquired absence of other specified parts of digestive tract; Z98.51 Tubal ligation status
CPT/HCPCS: 36415; 74022; 80053; 82140; 85025; 99284

== ENCOUNTER 2017-07-30 18:43 | Emergency (ER) | payer BC ==
[2017-07-30] MEDS ORDERED: NORMAL SALINE 1000 ML 1,000 ML IV ONE ×2 (19:06→21:21)
[2017-07-30] MEDS ORDERED: ONDANSETRON HCL INJ/PF 4 MG/2 ML SDV IV ONE (19:07)
--- NOTE | 2017-07-30 19:08 | ER Document Report ---
ED GI/ - General Chief Complaint: Nausea/Vomiting/Diarrhea Stated Complaint: FLU LIKE SYMPTOMS Time Seen by Provider: 07/30/17 19:06 Notes: The patient is a 66-year-old female, past medical history carcinomatosis of the ovary with metastases, presents with 3 days of nausea, vomiting and watery diarrhea. She received her last chemo dose at Replaced by [facility] 5 days ago and then was infused with 27 hours of Neupogen. She said she frequently has extensive vomiting and diarrhea after this medication and she tries to restrict her Imodium intake due to constipation that occurs afterwards. She has home Phenergan, Zofran and Decadron. She received Zofran IV and IVF by EMS prior to arrival and her nausea has improved. Patient denies fevers, abdominal pain, bloody stool, urinary symptoms, hematemesis, chest pain, shortness of breath, syncope or rash. TRAVEL OUTSIDE OF THE [place] IN LAST 30 DAYS: No - Related Data Allergies/Adverse Reactions: No Known Allergies Allergy (Verified 07/30/17 18:58) Past Medical History - General Information source: Patient - Social History Smoking Status: Unknown if Ever Smoked Family History: Reviewed & Not Pertinent - Past Medical History Cardiac Medical History: Reports: Hx Hypertension Endocrine Medical History: Reports: Hx Diabetes Mellitus Type 2 Renal/ Medical History: Denies: Hx Peritoneal Dialysis Past Surgical History: Reports: Hx Appendectomy, Hx Cholecystectomy, Hx Tubal Ligation - Immunizations Hx Diphtheria, Pertussis, Tetanus Vaccination: Yes - 2013 Review of Systems - Review of Systems Notes: REVIEW OF SYSTEMS: CONSTITUTIONAL: -fevers, -chills EENT: -eye pain, -difficulty swallowing, -nasal congestion CARDIOVASCULAR: -chest pain, -syncope. RESPIRATORY: -cough, -SOB GASTROINTESTINAL: -abdominal pain, +nausea, +vomiting, +diarrhea GENITOURINARY: -dysuria, -hematuria MUSCULOSKELETAL: -back pain, -neck pain SKIN: -rash or skin lesions. HEMATOLOGIC: -easy bruising or bleeding. LYMPHATIC: -swollen, enlarged glands. NEUROLOGICAL: -altered mental status or loss of consciousness, -headache, - neurologic symptoms PSYCHIATRIC: -anxiety, -depression. ALL OTHER SYSTEMS REVIEWED AND NEGATIVE. Physical Exam - Vital signs Vitals: Temp 98.3 F 07/30/17 18:45 - Notes Notes: PHYSICAL EXAMINATION: GENERAL: Well-appearing, well-nourished and in no acute distress. HEAD: Atraumatic, normocephalic. EYES: Pupils equal round and reactive to light, extraocular movements intact, sclera anicteric, conjunctiva are normal. ENT: nares patent, oropharynx clear without exudates. Moist mucous membranes. NECK: Normal range of motion, supple without lymphadenopathy LUNGS: Breath sounds clear to auscultation bilaterally and equal. No wheezes rales or rhonchi. HEART: Regular rate and rhythm without murmurs ABDOMEN: Soft, no abdominal tenderness, normal bowel sounds. EXTREMITIES: Normal range of motion, no pitting or edema. No cyanosis. NEUROLOGICAL: Cranial nerves grossly intact. Normal speech, normal gait. Normal sensory and motor exams. PSYCH: Normal mood, normal affect. SKIN: Warm, Dry, normal turgor, no rashes or lesions noted. Course - Re-evaluation Re-evalutation: Patient did not have any further episodes of diarrhea while in the ER. Unable to obtain a C. difficile sample, but patient has not been on antibiotics recently. Blood work is remarkable for a leukocytosis of 21K with 15% bands. Patient has absolutely no abdominal tenderness, but offered patient a CT scan to assess for a source of her bandemia. However, family and patient defer at this time due to multiple other CT scans for similar concerns that have not shown any abnormalities. Her leukocytosis is most likely related to her Neupogen injection she received this week. After 2 L IV fluids, she feels much better and her blood pressure is normal. She has antiemetics at home and gave her instructions to stay hydrated. Will have her follow-up with her oncologist. Given very strict return precautions and she understands. - Vital Signs Vital signs: Temp Pulse Resp BP Pulse Ox 98.3 F 12 123/60 95 07/30/17 18:45 07/30/17 22:10 07/30/17 22:10 07/30/17 22:10 - Laboratory Result Diagrams: 07/30/17 18:53 07/30/17 18:53 Laboratory results interpreted by me: 07/30/17 07/30/17 07/30/17 18:53 18:53 20:18 WBC 21.4 H RBC 3.00 L Hgb 10.2 L Hct 30.6 L MCV 102 H MCH 33.8 H RDW 18.9 H Plt Count 148 L Band Neutrophils % 25 H Lymphocytes % (Manual) 5 L Monocytes % (Manual) 0 L Abs Neuts (Manual) 20.3 H Abs Monocytes (Manual) 0.0 L Potassium 3.4 L BUN 22 H Glucose 225 H Urine Protein >=500 H - Diagnostic Test Radiology reviewed: Image reviewed, Reports reviewed Radiology results interpreted by me: CXR: NAD Discharge - Discharge Clinical Impression: Nausea vomiting and diarrhea Condition: Stable Disposition: HOME, SELF-CARE Additional Instructions: VOMITING: Vomiting (or nausea without vomiting) can be caused by many other different problems. It can mean that something's wrong with the stomach, such as ulcers or inflammation or the intestinal tract, such as appendicitis. But it can also be a symptom of a problem that has nothing to do with the stomach or intestines. Vomiting is common with severe headaches, earaches, tonsillitis, and kidney infections, etc. We see it with pneumonia or heart attacks. Drugs can cause nausea and vomiting. Many abdominal problems cause vomiting; for example, gallstones, kidney stones, pancreatitis, and intestinal obstruction ( blocked bowels). In most cases, curing the vomiting depends on fixing the problem that caused it. For temporary relief, we may use an anti-nausea medicine. For home use, we can prescribe suppositories, chewable pills, pills that dissolve in the mouth, or liquid anti-nausea drugs. If the vomiting seems to be caused by a problem in the stomach, acid-suppressing drugs may be prescribed as well. It's important to avoid dehydration. Sip small amounts of clear liquids ( soft drinks, tea, broth, etc) . Try to take fluids frequently even if you are vomiting to prevent dehydration. Take increasing amounts of fluid and when liquids are being consumed successfully, advance to small amounts of bland food (toast, soups, mashed potatoes, etc.) until you are able to resume a regular diet. Avoid aspirin, tobacco, and alcohol. If the vomiting worsens, if the problem that's making you vomit worsens, or if there's evidence of bleeding in the stomach (such as black, tarry stool, or bloody or black vomit), you should return immediately. Also, return if abdominal pain worsens or becomes localized to one area or you develop high fever. Call your doctor if you aren't improved in 24 hours. DIARRHEA, NON-SPECIFIC: Diarrhea means frequent, watery stools. There are many causes. Any problem that keeps the intestinal tract from absorbing water from the stool can lead to diarrhea. A sudden new diarrhea problem is usually caused by a virus, food sensitivity, toxic bacteria, or drugs. In this case, we expect the problem to go away soon. Testing is done only if you seem seriously ill from the diarrhea. If you have chronic diarrhea, or diarrhea that keeps coming back, we need to find out why. Chronic diarrhea can be due to inflammation of the bowels such as Crohn's disease or ulcerative colitis, food sensitivity such as intolerance to lactose or wheat protein, irritable bowel syndrome, and other problems. If your diarrhea is a significant problem but it's not clear why you have it, we' ll refer you to a specialist for further testing. During an episode of diarrhea, drink small amounts (two to six ounces) of clear liquids (soft drinks, sport drinks, herb teas, broth, etc). Take fluids frequently to prevent dehydration. It's usually not a problem to take mild anti- diarrhea medication such as Kaopectate or Pepto-Bismol. As the diarrhea eases, advance to small amounts of bland food (mashed potato, toast) for 24 hours. Call the physician if blood appears in your vomit or stool, if vomiting lasts longer than 24 hours, if the abdominal pain worsens or becomes localized to one area, if you develop high fever, or if you become lightheaded and weak. INTRAVENOUS (I V) FLUIDS: As part of your care today, you received intravenous (IV) fluids. IV fluids are administered to patients who are dehydrated or to those who have certain chemical (electrolyte) abnormalities that need correcting. ANTINAUSEA MEDICATION: You have been given a medication to suppress nausea and vomiting. This type of medication can be given as a shot, pill, or suppository. It will usually last for many hours. Pills and shots usually last six to eight hours. For the typical illness, only one or two doses of the medication may be necessary. Mild lightheadedness may occur. This type of medicine can cause drowsiness. Do not drive or operate dangerous machinery while under its influence. Do not mix with alcohol. See your doctor at once if you have muscle spasms or tightness, or uncontrollable motions (particularly of the neck, mouth, or jaw). Persistent vomiting or severe lightheadedness should also be evaluated by the physician. PRESCRIBED ANTIDIARRHEAL MEDICATION: Your doctor has prescribed antidiarrhea medication for you. While the usual treatment for diarrhea is a clear liquid diet to rest the bowels, an antidiarrheal medicine may allow you to be more active and comfortable while you recover. This medication can make you drowsy. Do not drive or operate machinery while under its influence. Do not combine with alcohol. Prescription antidiarrhea medicine can cause dry mouth. Occasionally, it can make you unable to pass your urine. Do not exceed the prescribed dosage. Severe abdominal pains, lightheadedness, bloody stool, or fever indicate that your disease is worsening. If these occur, stop the medication and see your doctor at once. FOLLOW-UP CARE: If you have been referred to a physician for follow-up care, call the physician s office for an appointment as you were instructed or within the next two days. If you experience worsening or a significant change in your symptoms, notify the physician immediately or return to the Emergency Department at any time for re-evaluation. Referrals: MIKEY CAR MD [Primary Care Provider] - Follow up as needed
--- NOTE | 2017-07-30 19:34 | RADIOLOGY REPORT (SQ) ---
EXAM DESCRIPTION: CHEST SINGLE VIEW COMPLETED DATE/TIME: 07/30/2017 7:16 pm REASON FOR STUDY: hypotension COMPARISON: None. EXAM PARAMETERS: NUMBER OF VIEWS: One view. TECHNIQUE: Single frontal radiographic view of the chest acquired. RADIATION DOSE: NA LIMITATIONS: None. FINDINGS: LUNGS AND PLEURA: No acute opacities, masses or pneumothorax. No pleural effusion. MEDIASTINUM AND HILAR STRUCTURES: No masses. Contour normal. HEART AND VASCULAR STRUCTURES: Heart normal in size. Normal vasculature. BONES: No acute findings. HARDWARE: Right chest port. OTHER: No other significant finding. IMPRESSION: NO ACUTE RADIOGRAPHIC FINDING IN THE CHEST. TECHNICAL DOCUMENTATION: JOB ID: [id number] 2010 [employer]- All Rights Reserved Reading location - IP/workstation name: [email or web address]
[2017-07-30 19:45] LABS: ALANINE AMINOTRANSFERASE 25 U/L (9-52); ALBUMIN 3.8 g/dL (3.5-5.0); ALKALINE PHOSPHATASE 124 U/L (38-126); ANION GAP 12 (5-19); ASPARTATE AMINO TRANSFERASE 16 U/L (14-36); BILIRUBIN,DIRECT 0.1 mg/dL (0.0-0.4); BILIRUBIN,TOTAL 0.3 mg/dL (0.2-1.3); BLOOD UREA NITROGEN 22 mg/dL (7-20); CARBON DIOXIDE 25 mmol/L (22-30); CHLORIDE 105 mmol/L (98-107); GLUCOSE 225 mg/dL (75-110); POTASSIUM 3.4 mmol/L (3.6-5.0); SODIUM 142.1 mmol/L (137-145); TOTAL PROTEIN 6.6 g/dL (6.3-8.2)
[2017-07-30 19:53] LABS: HEMATOCRIT 30.6 % (36.0-47.0); HEMOGLOBIN 10.2 g/dL (12.0-15.5); MEAN CORPUSCULAR HEMOGLOBIN 33.8 pg (27.0-33.4); MEAN CORPUSCULAR HGB CONC 33.2 g/dL (32.0-36.0); MEAN CORPUSCULAR VOLUME 102 fl (80-97); PLATELET COUNT 148 10^3/uL (150-450); RED CELL DISTRIBUTION WIDTH 18.9 % (11.5-14.0); WHITE BLOOD COUNT 21.4 10^3/uL (4.0-10.5)
[2017-07-30 20:08] LABS: VENOUS BLOOD BASE EXCESS -0.2 mmol/L; VENOUS BLOOD HCO3 25.5 mmol/L (20-32); VENOUS BLOOD PCO2 45.6 mmHg (35-63); VENOUS BLOOD PH 7.37 (7.30-7.42)
[2017-07-30 20:26] LABS: ABSOLUTE LYMPHOCYTES# (MANUAL) 1.1 10^3/uL (0.5-4.7); ABSOLUTE NEUTROPHILS# (MANUAL) 20.3 10^3/uL (1.7-8.2); BASOPHILS % (MANUAL) 0 % (0-2); EOSINOPHILS % (MANUAL) 0 % (0-6); LYMPHOCYTES % (MANUAL) 5 % (13-45); MONOCYTES % (MANUAL) 0 % (3-13); TOTAL CELLS COUNTED 100
[2017-07-30 20:28] LABS: PLATELET COMMENT ADEQUATE
[2017-07-30 20:29] LABS: ANISOCYTOSIS 2+; TOXIC GRANULATION 1+
[2017-07-30 20:30] LABS: OVALOCYTES SLIGHT; PLATELET LARGE PRESENT; POIKILOCYTOSIS SLIGHT
[2017-07-30 20:37] LABS: SEGMENTED NEUTROPHILS % (MAN) 70 % (42-78)
[2017-07-30 20:38] LABS: BAND NEUTROPHILS % (MANUAL) 25 % (3-5)
[2017-07-30 21:13] LABS: BILIRUBIN,URINE NEGATIVE (NEGATIVE); GLUCOSE, URINE NEGATIVE (NEGATIVE); KETONES,URINE NEGATIVE (NEGATIVE); LEUKOCYTE ESTERASE,URINE NEGATIVE (NEGATIVE); NITRITE,URINE NEGATIVE (NEGATIVE); PROTEIN,URINE >=500 mg/dL (NEGATIVE); URINE SPECIFIC GRAVITY 1.027; UROBILINOGEN,URINE NEGATIVE mg/dL (<2.0)
[2017-07-30 21:15] LABS: APPEARANCE,URINE SLIGHTLY HAZY; COLOR,URINE DARK YELLOW
--- NOTE | 2017-07-30 21:32 | EKG REPORT ---
SEVERITY:- ABNORMAL ECG - SINUS RHYTHM FIRST DEGREE AV BLOCK BORDERLINE R WAVE PROGRESSION, ANTERIOR LEADS : Confirmed by: Mitesh Guerrero MD 30-Jul-2017 21:31:25
[2017-07-30 23:35] VITALS: BP 114/66
[2017-08-02 09:57] LABS: PATH REVIEW PATHOLOGIST REVIEWED
== END 2017-07-30 23:36 | disposition home or self-care (01) ==
LOC: ER 18:43
DX: R11.2 Nausea with vomiting, unspecified (principal); R19.7 Diarrhea, unspecified; D72.825 Bandemia; C56.9 Malignant neoplasm of unspecified ovary; C79.9 Secondary malignant neoplasm of unspecified site; Z79.899 Other long term (current) drug therapy; I10 Essential (primary) hypertension; E11.9 Type 2 diabetes mellitus without complications; Z90.49 Acquired absence of other specified parts of digestive tract
CPT/HCPCS: 93005; 99284; 96360; 51701; 36415; 87045; 87086; 87205; 85025; 80053; 81001; 87493; 82803; 83605; 71045; 93010; J7030

== ENCOUNTER 2017-08-31 12:07 | Emergency (ER) | payer BC ==
[2017-08-31] MEDS ORDERED: TRAMADOL HCL 50 MG TABLET PO ONE (14:02)
--- NOTE | 2017-08-31 14:07 | ER Document Report ---
ED Extremity Problem, Lower - General Chief Complaint: Knee Pain Stated Complaint: FALL/LEFT KNEE PAIN Time Seen by Provider: 08/31/17 14:02 Mode of Arrival: Wheelchair Information source: Patient TRAVEL OUTSIDE OF THE [place] IN LAST 30 DAYS: No - HPI Notes: 66-year-old female with left anterior knee injury. Of note, patient has an extenuating history of melanoma for which she recently finished chemotherapy. States that she has underlying neuropathy due to chemotherapy and her diabetes which leads to chronic balance issues, she lost her balance and fell striking her left knee. Points of sharp and achy nonradiating pain to her left anterolateral knee, no numbness or tingling except for baseline neuropathy symptoms. The modifying factors or associated symptoms no other provocative factors. Sudden onset pain. - Related Data Allergies/Adverse Reactions: No Known Allergies Allergy (Verified 07/30/17 18:58) Past Medical History - Social History Smoking Status: Current Every Day Smoker Frequency of alcohol use: None Drug Abuse: None Family History: Reviewed & Not Pertinent Patient has suicidal ideation: No Patient has homicidal ideation: No - Medical History Medical History: Other Notes: Includes melanoma with recent chemotherapy , diabetes - Past Medical History Cardiac Medical History: Reports: Hx Hypertension Endocrine Medical History: Reports: Hx Diabetes Mellitus Type 2 Renal/ Medical History: Denies: Hx Peritoneal Dialysis Psychiatric Medical History: Reports: Hx Depression - anxiety Past Surgical History: Reports: Hx Appendectomy, Hx Cholecystectomy, Hx Tubal Ligation - Immunizations Hx Diphtheria, Pertussis, Tetanus Vaccination: Yes - 2013 Review of Systems - Review of Systems EENT: No symptoms reported Cardiovascular: No symptoms reported Respiratory: No symptoms reported Gastrointestinal: No symptoms reported Physical Exam - Vital signs Vitals: Temp Pulse Resp BP Pulse Ox 98.5 F 109 H 14 136/64 H 97 08/31/17 12:11 08/31/17 12:11 08/31/17 12:11 08/31/17 12:11 08/31/17 12:11 Interpretation: Normal - General General appearance: Appears well, Alert - HEENT Head: Normocephalic, Atraumatic Eyes: Normal Pupils: PERRL - Respiratory Respiratory status: No respiratory distress Chest status: Nontender Breath sounds: Normal Chest palpation: Normal - Cardiovascular Rhythm: Regular Heart sounds: Normal auscultation Murmur: No - Abdominal Inspection: Normal Distension: No distension Bowel sounds: Normal Tenderness: Nontender Organomegaly: No organomegaly - Back Back: Normal, Nontender - Extremities General upper extremity: Normal inspection, Nontender, Normal color, Normal ROM , Normal temperature General lower extremity: Normal inspection, Tender, Normal color, Normal temperature, Normal weight bearing. No: Nontender, Jade's sign Knee: Other - Symmetric pulses ,no significant edema, symmetric compared to right knee. Diffuse anterior patellar tenderness without crepitation or ecchymosis. Range of motion limited by pain. No gross ligamentous laxity. - Neurological Neuro grossly intact: Yes Cognition: Normal Orientation: AAOx4 [place] Coma Scale Eye Opening: Spontaneous [place] Coma Scale Verbal: Oriented [place] Coma Scale Motor: Obeys Commands [place] Coma Scale Total: 15 Speech: Normal Sensory: Normal - Psychological Associated symptoms: Normal affect, Normal mood - Skin Skin Temperature: Warm Skin Moisture: Dry Skin Color: Normal Course - Vital Signs Vital signs: Temp Pulse Resp BP Pulse Ox 98.5 F 109 H 14 136/64 H 97 08/31/17 12:11 08/31/17 12:11 08/31/17 12:11 08/31/17 12:11 08/31/17 12:11 Discharge - Discharge Referrals: MIKEY CAR MD [Primary Care Provider] - Follow up as needed
--- NOTE | 2017-08-31 14:54 | RADIOLOGY REPORT (SQ) ---
EXAM DESCRIPTION: KNEE LEFT 3 VIEWS COMPLETED DATE/TIME: 08/31/2017 2:24 pm REASON FOR STUDY: Fall with trauma COMPARISON: None. NUMBER OF VIEWS: Three views. TECHNIQUE: AP, lateral, and sunrise patella radiographic images acquired of the left knee. LIMITATIONS: None. FINDINGS: Bones are osteopenic. There is a joint effusion. No fracture is identified. Chondrocalc inosis. Osteophytes in all 3 compartments. IMPRESSION: Joint effusion. No fracture identified. TECHNICAL DOCUMENTATION: JOB ID: [id number] [employer]- All Rights Reserved Reading location - IP/workstation name: [email or web address]
[2017-08-31 15:43] VITALS: BP 144/69
== END 2017-08-31 15:43 | disposition home or self-care (01) ==
LOC: ER 12:07
DX: S83.402A Sprain of unspecified collateral ligament of left knee, initial encounter (principal); M25.562 Pain in left knee; E11.40 Type 2 diabetes mellitus with diabetic neuropathy, unspecified; Z79.899 Other long term (current) drug therapy; W19.XXXA Unspecified fall, initial encounter; F17.200 Nicotine dependence, unspecified, uncomplicated; I10 Essential (primary) hypertension; E11.9 Type 2 diabetes mellitus without complications
CPT/HCPCS: 99283

== ENCOUNTER → 2017-09-15 | Outpatient (CLI) | payer BC ==
--- NOTE | 2017-09-16 07:29 | RADIOLOGY REPORT (SQ) ---
EXAM DESCRIPTION: MRI LT LOWER JOINT WITHOUT COMPLETED DATE/TIME: 09/15/2017 6:26 pm REASON FOR STUDY: LEFT KNEE INJURY S89.92XA UNSPECIFIED INJURY OF LEFT LOWER LEG, INITIAL ENCOU COMPARISON: Recent radiographs. TECHNIQUE: Leftknee images acquired and stored on PACS. Multiplanar images include fat sensitive se quences as T1, water sensitive sequences as FST2 or STIR, cartilage sensitive sequences as FSPD, and gradient echo sequences. LIMITATIONS: Study is moderately -markedly limited by motion. FINDINGS: JOINT AND BURSAE: Large joint effusion. Septation and probable synovitis present. Barrel Bung Remover And Dumper iorly projecting midline popliteal cyst containing debris and loose bodies. BONE CORTEX AND MARROW: No occult fracture or worrisome bone lesion. Cysts or erosions are present, most notable along the roof of the intercondylar notch and medially along the femoral condyle. ACL: Deficient. PCL: Intact. MCL: Intact. LCL: Intact. MEDIAL MENISCUS: Limited assessment. No gross extrusion. Mild tear in the posterior horn/ root susp ected. LATERAL MENISCUS: Generally deficient, macerated appearance with loss of tissue globally. MEDIAL COMPARTMENT: Chondral thinning and osteophytes, discrete chondral defects not identified. LATERAL COMPARTMENT: Generally denuded articular surface cartilage, full thickness loss throughout. Marginal osteophytes. PATELLA: Grossly normal location. Prominent patellofemoral spurring with irregular chondral thinning . EXTENSOR MECHANISM: Intact. Quadriceps and patella tendons normal. SOFT TISSUES: Popliteal cyst as above. No gross regional solid soft tissue mass. Vascular flow void s look appropriate. OTHER: No other significant finding. IMPRESSION: 1. Limited study. 2. Deficient ACL. 3. Macerated lateral meniscus with generally denu ded lateral compartment hyaline cartilage. 4. Large joint effusion with potential synovitis. TECHNICAL DOCUMENTATION: JOB ID: [id number] 1919 [employer]- All Rights Reserved Reading location - IP/workstation name: [email or web address]
== END ==
LOC: RAD 16:14
PROVIDERS: ATTEND Physician Assistant
DX: S89.92XA Unspecified injury of left lower leg, initial encounter (principal); X58.XXXA Exposure to other specified factors, initial encounter

== ENCOUNTER 2017-11-03 12:22 | Emergency (ER) | payer BC ==
[2017-11-03] MEDS ORDERED: LACTULOSE SYRUP 20 GM/30 ML UDCUP PR ONE (12:52)
--- NOTE | 2017-11-03 12:54 | ER Document Report ---
ED GI/ - General Chief Complaint: Constipation Stated Complaint: ABDOMINAL PAIN Time Seen by Provider: 11/03/17 12:51 Notes: Chief complaint: Constipated History of complain:( obtained from----patient) 66 years old female with a history of ovarian cancer diagnosed last month had a oophorectomy done subsequently, currently on chemotherapy, presents today with constipated since October 25. Which is about 9 days. No fever chills nausea vomiting. No dysuria frequency urgency. No other constitutional symptoms. Onset: Gradual Duration: Last few days Severity: Mild to moderate Quality: None Context: On chemotherapy Exacerbating factor and relieving factors: None REVIEW OF SYSTEMS: CONSTITUTIONAL : Denies fever, chills, or sweats. Denies recent illness. EENT: Denies eye, ear, throat, or mouth pain or symptoms. Denies nasal or sinus congestion or discharge. Denies throat, tongue, or mouth swelling or difficulty swallowing. CARDIOVASCULAR: Denies chest pain. Denies palpitations or racing or irregular heart beat. Denies ankle edema. RESPIRATORY: Denies cough, cold, or chest congestion. Denies shortness of breath, difficulty breathing, or wheezing. GASTROINTESTINAL: Denies distention. Denies nausea, vomiting, or diarrhea. Denies blood in vomitus, stools, or per rectum. Denies black, tarry stools. Denies constipation. GENITOURINARY: Denies difficulty urinating, painful urination, burning, frequency, blood in urine, or discharge. FEMALE GENITOURINARY: Denies vaginal bleeding, heavy or abnormal periods, irregular periods. Denies vaginal discharge or odor. MUSCULOSKELETAL: Denies back or neck pain or stiffness. Denies joint pain or swelling. SKIN: Denies rash, lesions or sores. HEMATOLOGIC : Denies easy bruising or bleeding. LYMPHATIC: Denies swollen, enlarged glands. NEUROLOGICAL: Denies confusion or altered mental status. Denies passing out or loss of consciousness. Denies dizziness or lightheadedness. Denies headache. Denies weakness or paralysis or loss of use of either side. Denies problems with gait or speech. Denies sensory loss, numbness, or tingling. Denies seizures. PSYCHIATRIC: Denies anxiety or stress. Denies depression, suicidal ideation, or homicidal ideation. ALL OTHER SYSTEMS REVIEWED AND NEGATIVE. PHYSICAL EXAMINATION: GENERAL: Well-appearing, well-nourished and in no acute distress. HEAD: Atraumatic, normocephalic. EYES: Pupils equal round and reactive to light, extraocular movements intact, conjunctiva are normal. ENT: Nares patent, oropharynx clear without exudates. Moist mucous membranes. NECK: Normal range of motion, supple without lymphadenopathy LUNGS: Breath sounds clear to auscultation bilaterally and equal. No wheezes rales or rhonchi. HEART: Regular rate and rhythm without murmurs ABDOMEN: Soft, nontender, nondistended abdomen. No guarding, no rebound. No masses appreciated. Examination of genitals-deferred Musculoskeletal: Normal range of motion, no pitting or edema. No cyanosis. NEUROLOGICAL: Cranial nerves grossly intact. Normal speech, normal gait. Normal sensory, motor exams PSYCH: Normal mood, normal affect. SKIN: Warm, Dry, normal turgor, no rashes or lesions noted. Dictation was performed using [employer] voice recognition software TRAVEL OUTSIDE OF THE [place] IN LAST 30 DAYS: No - Related Data Allergies/Adverse Reactions: No Known Allergies Allergy (Verified 11/03/17 12:40) Past Medical History - Social History Smoking Status: Never Smoker Chew tobacco use (# tins/day): No Frequency of alcohol use: None Drug Abuse: None Family History: Reviewed & Not Pertinent Patient has suicidal ideation: No Patient has homicidal ideation: No - Past Medical History Cardiac Medical History: Reports: Hx Hypertension Endocrine Medical History: Reports: Hx Diabetes Mellitus Type 2 Renal/ Medical History: Denies: Hx Peritoneal Dialysis Psychiatric Medical History: Reports: Hx Depression - anxiety Past Surgical History: Reports: Hx Appendectomy, Hx Cholecystectomy, Hx Hysterectomy, Hx Tubal Ligation - Immunizations Hx Diphtheria, Pertussis, Tetanus Vaccination: Yes - 2013 Review of Systems - Review of Systems Notes: Dictated Physical Exam - Vital signs Vitals: Temp Resp BP 98.6 F 20 106/49 L 11/03/17 12:32 11/03/17 12:32 11/03/17 12:32 - Notes Notes: Dictated Course - Vital Signs Vital signs: Temp Pulse Resp BP Pulse Ox 98.6 F 20 106/49 L 11/03/17 12:32 11/03/17 12:32 11/03/17 12:32 Discharge - Discharge Referrals: PILAR GUTIERREZ MD [Primary Care Provider] - Follow up as needed
--- NOTE | 2017-11-03 14:47 | ER Document Report ---
ED General <BOGDAN WATKINS - Last Filed: 11/03/17 20:19> - General Mode of Arrival: Ambulatory Information source: Patient TRAVEL OUTSIDE OF THE [place] IN LAST 30 DAYS: No <STACY PRADHAN - Last Filed: 11/03/17 22:29> - General Chief Complaint: Constipation Stated Complaint: ABDOMINAL PAIN Time Seen by Provider: 11/03/17 12:51 Notes: Patient is a 66 year old female with carcinomatosis of the ovary with metastases , Type 2 diabetes, HTN and hyperlipidemia presents to the emergency department complaining of constipation and some epigastric abdominal pain onset 9 days ago. Patient states before chemotherapy she would normally have constipation about once a month but with the help of OTC medications was able to relieve the constipation. Patient states she has been unable relieve this episode of constipation and states it feels like there is a big lump at the base of her bottom. Patient currently has chemotherapy at [facility] once a month. She states she was diagnosed with carcinomatosis in March of 2017 and had 6 chemotherapy sessions followed by a total hysterectomy on September 26, 2017 at [facility]. (STACY PRADHAN) - Related Data Allergies/Adverse Reactions: No Known Allergies Allergy (Verified 11/03/17 12:40) Past Medical History - General Information source: Patient, Relative - Social History Smoking Status: Current Every Day Smoker - 1/2 a pack a day Chew tobacco use (# tins/day): No Frequency of alcohol use: None Drug Abuse: None Family History: Reviewed & Not Pertinent Patient has suicidal ideation: No Patient has homicidal ideation: No - Past Medical History Cardiac Medical History: Reports: Hx Hypertension Endocrine Medical History: Reports: Hx Diabetes Mellitus Type 2 Musculoskeltal Medical History: Reports Other - Injury to the Left ACL Psychiatric Medical History: Reports: Hx Depression - anxiety Past Surgical History: Reports: Hx Appendectomy, Hx Cholecystectomy, Hx Hysterectomy, Hx Tubal Ligation - Immunizations Hx Diphtheria, Pertussis, Tetanus Vaccination: Yes - 2013 <STACY PRADHAN - Last Filed: 11/03/17 22:29> Review of Systems - Review of Systems Constitutional: No symptoms reported EENT: No symptoms reported Cardiovascular: No symptoms reported Respiratory: No symptoms reported Gastrointestinal: See HPI, Abdominal pain, Constipation Genitourinary: No symptoms reported Female Genitourinary: No symptoms reported Musculoskeletal: No symptoms reported Skin: No symptoms reported Hematologic/Lymphatic: No symptoms reported Neurological/Psychological: No symptoms reported -: Yes All other systems reviewed and negative <STACY PRADHAN - Last Filed: 11/03/17 22:29> Physical Exam - Rectal Tenderness: No Stool: Other - There was no stool in rectal vault, did pass gas with each withdrawal of the examining finger. This was done 3-4 times. The patient had received a lactulose enema that was ordered from triage earlier and according to the nurse produced a small amount of stool. Hemorrhoids: None <BOGDAN WATKINS - Last Filed: 11/03/17 20:19> <STACY PRADHAN - Last Filed: 11/03/17 22:29> - Vital signs Vitals: Temp Resp BP 98.6 F 20 106/49 L 11/03/17 12:32 11/03/17 12:32 11/03/17 12:32 - Notes Notes: GENERAL: Alert, interacts well. No acute distress. HEAD: Normocephalic, atraumatic. EYES: Pupils equal, round, and reactive to light. Extraocular movements intact. ENT: Oral mucosa moist, tongue midline. NECK: Full range of motion. Supple. Trachea midline. LUNGS: Clear to auscultation bilaterally, no wheezes, rales, or rhonchi. No respiratory distress. Port located on the right anterior chest. HEART: Regular rate and rhythm. No murmurs, gallops, or rubs. ABDOMEN: Soft, Obese. non-tender. Non-distended. Bowel sounds present in all 4 quadrants. EXTREMITIES: Moves all 4 extremities spontaneously. No edema, radial and dorsalis pedis pulses 2/4 bilaterally. No cyanosis. NEUROLOGICAL: Alert and oriented x3. Normal speech. PSYCH: Normal affect, normal mood. SKIN: Warm, dry, normal turgor. No rashes or lesions noted. (STACY PRADHAN) Course - Laboratory Result Diagrams: 11/03/17 15:21 11/03/17 15:21 - Diagnostic Test Radiology reviewed: Image reviewed, Reports reviewed - No acute process. There is a fair amount of stool in the large bowel, there is gas in the colon and the small bowel. <BOGDAN WATKINS - Last Filed: 11/03/17 20:19> - Laboratory Result Diagrams: 11/03/17 15:21 11/03/17 15:21 <STACY PRADHAN - Last Filed: 11/03/17 22:29> - Re-evaluation Re-evalutation: 11/03/17 17:52 Digital rectal exam did not show any stool in the rectal vault, but the patient had had a lactulose enema prior to my exam. After confirming that the ANC is 2.2, the patient will receive a soapsuds enema with mineral oil. The nurse will attempt to gently introduce the 2 as far up the left colon as possible prior to installing the enema. 11/03/17 20:19 After the second enema, the patient began having large volume results of loose to liquid stool. At this time she is having small amounts about every 10 minutes. She states her abdomen feels much better than before and she is quite happy with the results at this time. (BOGDAN WATKINS) - Vital Signs Vital signs: Temp Pulse Resp BP Pulse Ox 98.6 F 91 20 149/63 H 99 11/03/17 12:32 11/03/17 20:34 11/03/17 20:34 11/03/17 20:34 11/03/17 20:34 - Laboratory Laboratory results interpreted by me: 11/03/17 11/03/17 15:21 15:21 MCV 99 H RDW 16.7 H Lymphocytes % 49.0 H BUN 23 H Glucose 159 H AST 13 L Discharge <BOGDAN WATKINS - Last Filed: 11/03/17 20:19> <STACY PRADHAN - Last Filed: 11/03/17 22:29> - Discharge Clinical Impression: Constipation Qualifiers: Constipation type: unspecified constipation type Qualified Code(s): K59.00 - Constipation, unspecified Abdominal pain Qualifiers: Abdominal location: generalized Qualified Code(s): R10.84 - Generalized abdominal pain Condition: Stable Disposition: HOME, SELF-CARE Additional Instructions: Take MiraLAX every day to help prevent constipation. Drink plenty of fluids every day. Follow-up with your doctor if not continuing to improve. RETURN TO THE EMERGENCY ROOM IF ANY NEW OR WORSENING SYMPTOMS. Referrals: PILAR GUTIERREZ MD [Primary Care Provider] - Follow up as needed Scribe Attestation: 11/03/17 15:31 I personally performed the services described in the documentation, reviewed and edited the documentation which was dictated to the scribe in my presence, and it accurately records my words and actions. (BOGDAN WATKINS) Scribe Documentation - Scribe Written by Scribe:: Annie Ledebtter, 11/03/2017 15:12 acting as scribe for :: Benito <STACY PRADHAN - Last Filed: 11/03/17 22:29>
--- NOTE | 2017-11-03 15:24 | RADIOLOGY REPORT (SQ) ---
EXAM DESCRIPTION: ACUTE ABDOMEN SERIES COMPLETED DATE/TIME: 11/03/2017 3:16 pm REASON FOR STUDY: Constipation, abd pain, 5wks s/p GREYSON for ov cancer COMPARISON: None. NUMBER OF VIEWS: Three views. TECHNIQUE: Frontal chest, supine abdomen and upright/ abdomen radiographic images acquired. LIMITATIONS: None. FINDINGS: CHEST: Lungs clear of infiltrates. FREE AIR: None. No abnormal gas collections. BOWEL GAS PATTERN: Nonobstructive pattern. No dilated loops or air fluid levels. CALCIFICATIONS: No suspicious calcifications. HARDWARE: None in the abdomen. SOFT TISSUES: No gross mass or suggestion of organomegaly. BONES: Moderate lumbar degenerative disc changes. OTHER: No other significant finding. IMPRESSION: Lumbar degenerative disc changes. Nonspecific abdomen. TECHNICAL DOCUMENTATION: JOB ID: [id number] [employer]- All Rights Reserved Reading location - IP/workstation name: [email or web address]
[2017-11-03 15:34] LABS: ABSOLUTE LYMPHOCYTES (AUTO) 2.5 10^3/uL (0.5-4.7); ABSOLUTE MONOCYTES (AUTO) 0.3 10^3/uL (0.1-1.4); ABSOLUTE NEUT (AUTO) 2.2 10^3/uL (1.7-8.2); BASOPHILS % (AUTO) 0.6 % (0-2); EOSINOPHILS % (AUTO) 0.9 % (0-6); HEMATOCRIT 36.8 % (36.0-47.0); HEMOGLOBIN 12.4 g/dL (12.0-15.5); MEAN CORPUSCULAR HEMOGLOBIN 33.4 pg (27.0-33.4); MEAN CORPUSCULAR HGB CONC 33.9 g/dL (32.0-36.0); MEAN CORPUSCULAR VOLUME 99 fl (80-97); MONOCYTES % (AUTO) 6.3 % (3-13); PLATELET COUNT 209 10^3/uL (150-450); RED BLOOD COUNT 3.72 10^6/uL (3.72-5.28); RED CELL DISTRIBUTION WIDTH 16.7 % (11.5-14.0); SEGMENTED NEUTROPHILS % (AUTO) 43.2 % (42-78); TOTAL CELLS COUNTED % (AUTO) 100 %
[2017-11-03 15:55] LABS: ALANINE AMINOTRANSFERASE 21 U/L (9-52); ALBUMIN 3.9 g/dL (3.5-5.0); ALKALINE PHOSPHATASE 72 U/L (38-126); ANION GAP 11 (5-19); ASPARTATE AMINO TRANSFERASE 13 U/L (14-36); BILIRUBIN,DIRECT 0.3 mg/dL (0.0-0.4); BILIRUBIN,TOTAL 0.4 mg/dL (0.2-1.3); BLOOD UREA NITROGEN 23 mg/dL (7-20); CALCIUM 9.6 mg/dL (8.4-10.2); CARBON DIOXIDE 29 mmol/L (22-30); CHLORIDE 104 mmol/L (98-107); GLUCOSE 159 mg/dL (75-110); POTASSIUM 4.8 mmol/L (3.6-5.0); SODIUM 144.4 mmol/L (137-145); TOTAL PROTEIN 7.5 g/dL (6.3-8.2)
[2017-11-03] MEDS ORDERED: MINERAL OIL 30 ML UDCUP PR ONE (17:16)
[2017-11-03] MEDS ORDERED: MAGNESIUM CITRATE 296 ML BOTTLE PO ONE (17:16)
[2017-11-03 20:37] VITALS: BP 149/63
== END 2017-11-03 20:33 | disposition home or self-care (01) ==
LOC: ER 12:22
DX: K59.00 Constipation, unspecified (principal); R10.84 Generalized abdominal pain; E11.9 Type 2 diabetes mellitus without complications; I10 Essential (primary) hypertension; F17.200 Nicotine dependence, unspecified, uncomplicated; C80.0 Disseminated malignant neoplasm, unspecified; Z79.899 Other long term (current) drug therapy; Z90.710 Acquired absence of both cervix and uterus; Z90.49 Acquired absence of other specified parts of digestive tract
CPT/HCPCS: 99284; 36415; 85025; 80053; 74022; J3490 ×2